=== PATIENT | female | born 1985 | race Caucasian/White ===

== ENCOUNTER 2017-11-22 23:52 | Emergency (ER) | payer OTHER ==
[~2017-11-22] VITALS: Ht 167.6 cm; Wt 62.1 kg
[~2017-11-22 23:52] MED LIST: ANTIVERT12.5 MG; CEFALEXIN; KETO10TA2 PO; NORFLEX100MG PO
== END 2017-11-23 02:29 | disposition home or self-care (01) ==
LOC: ER 23:52 → EMR PED 23:53 → ER 11-23 02:29
DX: B34.9 Viral infection, unspecified (principal)

== ENCOUNTER 2018-12-29 12:55 | Emergency (ER) | payer OTHER ==
[~2018-12-29] VITALS: Ht 170.2 cm; Wt 60.3 kg
[2018-12-29] MEDS ORDERED: NASAL MIST126 ML (14:03)
[2018-12-29] MEDS ORDERED: PREVACID15 MG (14:03)
== END 2018-12-29 18:37 | disposition home or self-care (01) ==
LOC: ER 12:55
DX: D64.9 Anemia, unspecified (principal); R42 Dizziness and giddiness

== ENCOUNTER 2019-02-09 15:49 | Emergency (ER) | payer OTHER ==
[~2019-02-09] VITALS: Ht 170.2 cm; Wt 72.6 kg
[~2019-02-09 15:49] MED LIST changes: +NASAL MIST126 ML; +PREVACID15 MG
[2019-02-09] MEDS ORDERED: ADVIL (16:53)
== END 2019-02-09 19:29 | disposition home or self-care (01) ==
LOC: ER 15:49
DX: S46.812A Strain of other muscles, fascia and tendons at shoulder and upper arm level, left arm, initial encounter (principal); S50.02XA Contusion of left elbow, initial encounter; M54.2 Cervicalgia; W18.39XA Other fall on same level, initial encounter; Y93.B2 Activity, push-ups, pull-ups, sit-ups; Y92.488 Other paved roadways as the place of occurrence of the external cause; Y99.8 Other external cause status

== ENCOUNTER 2022-01-29 23:53 | Emergency (ER) | payer OTHER ==
[~2022-01-29] VITALS: Ht 160 cm; Wt 63.0 kg
[~2022-01-29 23:53] MED LIST changes: +ADVIL
[2022-01-30] MEDS ORDERED: KETO10TA2 PO (04:55)
[2022-01-30] MEDS ORDERED: FLONASE ALLERG9.9 ML NASAL (04:55)
[2022-01-30] MEDS ORDERED: ALLEGRA-D 12 H1 EACH PO (04:55)
== END 2022-01-30 05:43 ==
LOC: ER 23:53 → EMR PED 23:57 → ER 01-30 05:43
DX: J32.9 Chronic sinusitis, unspecified (principal); R51.9 Headache, unspecified

== ENCOUNTER 2022-03-09 15:51 | Emergency (ER) | payer OTHER ==
[~2022-03-09] VITALS: Ht 170.2 cm; Wt 63.0 kg
[~2022-03-09 15:51] MED LIST changes: +ALLEGRA-D 12 H1 EACH PO; +FLONASE ALLERG9.9 ML NASAL
== END 2022-03-09 20:04 | disposition home or self-care (01) ==
LOC: ER 15:51
DX: B34.9 Viral infection, unspecified (principal); Z20.822 Contact with and (suspected) exposure to COVID-19

== ENCOUNTER 2022-03-10 15:29 | Emergency (ER) | payer OTHER ==
[~2022-03-10] VITALS: Ht 170.2 cm; Wt 62.6 kg
== END 2022-03-10 21:49 | disposition home or self-care (01) ==
LOC: ER 15:29
DX: S09.90XA Unspecified injury of head, initial encounter (principal); X58.XXXA Exposure to other specified factors, initial encounter; Y93.9 Activity, unspecified; Y92.9 Unspecified place or not applicable; Y99.9 Unspecified external cause status

== ENCOUNTER → 2022-05-21 | Emergency (ER) | payer OTHER ==
[~2022-05-21] VITALS: Ht 172.7 cm; Wt 61.2 kg
== END | disposition home or self-care (01) ==
LOC: ER 19:37
DX: M54.2 Cervicalgia (principal)

== ENCOUNTER 2023-01-30 21:03 | Emergency (ER) | payer OTHER ==
[~2023-01-30] VITALS: Ht 167.6 cm; Wt 60.8 kg
== END 2023-01-30 22:48 | disposition home or self-care (01) ==
LOC: ER 21:03
DX: U07.1 COVID-19 (principal)

== ENCOUNTER → 2023-03-25 | Emergency (ER) | payer OTHER ==
[~2023-03-25] VITALS: Ht 170.2 cm; Wt 60.3 kg
== END | disposition home or self-care (01) ==
LOC: ER 16:54
DX: R11.0 Nausea (principal)

== ENCOUNTER 2023-06-28 09:49 | Emergency (ER) | payer OTHER ==
[~2023-06-28] VITALS: Ht 330.2 cm; Wt 61.2 kg
[2023-06-28] MEDS ORDERED: DEXAMETHASONE SODIUM PHOSPHATE 4 MG/ML VIAL IM STA (10:04)
[2023-06-28] MEDS ORDERED: NAPROXEN500 MG PO (13:44)
[2023-06-28] MEDS ORDERED: CYCLOBENZAPRINE10 MG PO (13:44)
== END 2023-06-28 13:50 | disposition home or self-care (01) ==
LOC: ER 09:49
DX: S49.82XA Other specified injuries of left shoulder and upper arm, initial encounter (principal); V29.99XA Rider (driver) (passenger) of other motorcycle injured in unspecified traffic accident, initial encounter; Y93.I9 Activity, other involving external motion; Y92.413 State road as the place of occurrence of the external cause

== ENCOUNTER 2023-12-05 22:31 | Emergency (ER) | payer OTHER ==
[~2023-12-05] VITALS: Ht 170.2 cm; Wt 63.5 kg
[~2023-12-05 22:31] MED LIST changes: +CYCLOBENZAPRINE10 MG PO; +NAPROXEN500 MG PO
[2023-12-05 22:34] VITALS: BP 121/74; O2SAT 99
== END 2023-12-05 23:45 | disposition home or self-care (01) ==
LOC: ER 22:33
DX: H61.23 Impacted cerumen, bilateral (principal)

== ENCOUNTER 2024-02-23 18:17 | Emergency (ER) | payer OTHER ==
[~2024-02-23] VITALS: Ht 162.6 cm; Wt 63.5 kg
[2024-02-23 20:26] LABS: HEMATOCRIT 32.1 % (36.0-45.00); HEMOGLOBIN 10.4 g/dL (12.0-15.00); MEAN CELL VOLUME 73.1 fL (80.00-100.00); MEAN CORPUSCULAR HEMOGLOBIN 23.7 pg (27.00-32.0); MEAN CORPUSCULAR HGB CONC 32.4 g/dl (32.0-36.0); PLATELET COUNT 316 K/uL (150-450); RED BLOOD COUNT 4.39 M/uL (4.00-6.00); RED CELL DISTRIBUTION WIDTH 17.2 % (11.5-14.5)
[2024-02-23] MEDS ORDERED: ONDANSETRON HCL 2 MG/ML VIAL IV ONE (20:45)
[2024-02-23 21:11] LABS: BILIRUBIN TOTAL 0.38 mg/dL (0.3-1.2); CALCIUM 9.6 mg/dL (8.5-10.1); CREATININE SERUM 0.75 mg/dL (0.55-1.02); GFR 86.95; GLOBULINA 3.9 G/DL (2.4-3.5); POTASSIUM 4.31 mEq/L (3.5-5.1); TOTAL PROTEIN 7.9 gm/dL (6.4-8.2)
[2024-02-23] MEDS ORDERED: PEPCID AC20 MG PO (21:23)
[2024-02-23] MEDS ORDERED: ZOFRAN8 MG PO (21:23)
== END 2024-02-23 21:36 | disposition home or self-care (01) ==
LOC: ER 18:19
PROVIDERS: General Practice
DX: O21.9 Vomiting of pregnancy, unspecified (principal); Z3A.00 Weeks of gestation of pregnancy not specified